=== PATIENT | female | born 1965 | race Caucasian/White ===

== ENCOUNTER → 2021-02-12 10:57 | Outpatient (CLI) | payer OTHER, SELFPAY ==
--- NOTE | ~2021-02-12 | XR_ITS ---
EXAMINATION: XR thoracic spine 2V DATE: 02/12/2021 11:17 INDICATION: Back pain TECHNIQUE: AP and lateral views of the thoracic spine are obtained. COMPARISON: None. FINDINGS: There are 13 degrees of thoracolumbar dextroscoliosis. Bone alignment is normal. The verteb ral body heights are maintained. There is mild loss of intervertebral disc space height in the midtho racic spine. No fracture is identified. IMPRESSION: 1. Mild thoracic spondylosis without acute findings. Reviewed, dictated and finalized at location B.
--- NOTE | ~2021-02-12 | XR_ITS ---
EXAMINATION: XR lumbar spine 2-3V DATE: 02/12/2021 11:17 INDICATION: Back pain TECHNIQUE: Anteroposterior and lateral views of the lumbar spine, and cone-down lateral view of the l umbosacral junction were obtained. COMPARISON: None. FINDINGS: There are 13 degrees of thoracolumbar levoscoliosis. The vertebral body heights are maintai va. There is 1 mm of anterolisthesis of L3 on L4. The intervertebral disc spaces are maintained. The re is mild facet osteoarthritis of the lower lumbar spine. The bowel gas pattern is normal. IMPRESSION: 1. Mild lumbar spondylosis without acute findings. Reviewed, dictated and finalized at location B.
--- NOTE | ~2021-02-12 | XR_ITS ---
EXAMINATION:XR_[id number]_CR DATE: 02/12/2021 11:17 INDICATION: Neck pain TECHNIQUE: AP, lateral, lateral swimmers and odontoid views of the cervical spine are provided. COMPARISON: None FINDINGS: There are 2 mm of anterolisthesis of C4 on C5. Bone alignment is otherwise normal. The odon toid is intact. No fracture is identified. The vertebral body heights are normal. There is moderate l oss of intervertebral disc space height at C5-6 and C6-7. Small degenerative osteophytes project from the anterior endplates of multiple vertebral bodies. There is moderate facet and uncovertebral joint osteoarthritis at C5-6 and C6-7. Prevertebral soft tissues are normal. IMPRESSION: 1. Moderate cervical spondylosis without acute findings. Reviewed, dictated and finalized at location B.
== END ==
PROVIDERS: Visit Provider Chiropractor
DX: M47.816 Spondylosis without myelopathy or radiculopathy, lumbar region (principal); M47.812 Spondylosis without myelopathy or radiculopathy, cervical region
CPT/HCPCS: 72040; 72070; 72100

== ENCOUNTER 2022-10-06 10:09 | Day surgery (SDC) | payer OTHER, SELFPAY ==
[2022-08-04 07:04] VITALS: BMI 19.4
--- NOTE | 2022-10-05 14:23 | PM.HPGS ---
History of Present Illness History of Present Illness Consent: Risks, benefits, and alternatives have been discussed and questions answered. Patient agrees to proceed with procedure. Chief complaint: Neoplasm Screening Narrative: Leah Mittal is a 56 year old female was referred for colon cancer screening. Review of Systems Review of Systems: All systems reviewed & are unremarkable except as noted in HPI and below PMFSH Social History Social History Smoking status: Never smoker Alcohol intake: current Substance use: never Substance use type: does not use Living arrangements: with family Spiritual care concerns: No Meds Home Medications and Allergies Home Medications Medication Instructions Recorded Confirmed Type No Home Medications 09/21/22 10/06/22 History Allergies Allergy/AdvReac Type Severity Reaction Status Date / Time No Known Allergies Allergy Mild Verified 10/06/22 10:42 Exam Resp: Auscultation: clear to auscultation bilaterally Cardio: Rate: regular rate Rhythm: regular rhythm GI: GI Palp: Yes Soft to palpation and No Tenderness to palpation present (GI) Assessment and Plan Assessment and plan (1) Colon cancer screening: Code(s): Z12.11 - Encounter for screening for malignant neoplasm of colon Status: Acute Assessment and Plan: Colonoscopy with possible biopsy or polypectomy or cautery or injection of substances.
--- NOTE | 2022-10-06 09:09 | P.PNAN_ITS ---
Anes - Initial Pre Proc Eval Procedure: Operation Date: 10/06/22 12:00 Proposed Procedures p Screening Colonoscopy - Carloz Narayanan MD Date/Time: 10/06/22 09:09 Surgeon: Carloz Narayanan MD Pre Op Diagnosis: Neoplasm Screening Patient Data Age: 56 Gender: F Height: 1.65 m Weight: 54.5 kg Allergies Allergy/AdvReac Type Severity Reaction Status Date / Time No Known Allergies Allergy Mild Verified 10/06/22 10:42 Home Medications Medication Instructions Recorded Confirmed Type No Home Medications 09/21/22 10/06/22 History Patient hx anesthesia problems: none Family hx anesthesia problems: none Results Review: All pre-operative results and documents have been reviewed as part of the pre- operative evaluation. [facility] Social History Social History Smoking status: Never smoker Alcohol intake: current Substance use: never Substance use type: does not use Living arrangements: with family Spiritual care concerns: No Anes - Eval Final PreProcedure Day of Procedure 10/06/22 09:09 Patient weight: normal Heart: regular rate and rhythm Lungs: clear to auscultation and normal air movement Airway: Mallampati scale class II Neurological: alert and oriented Last oral intake: >/= 8 hours ASA classification: I Emergent: no Anesthetic plan: proceed Anesthesia type and monitoring: general GIVS and standard monitoring Results Review: All pre-operative results and documents have been reviewed as part of the pre- operative evaluation. Informed Consent: The patient's anesthetic plan and its attendant risks and benefits were discussed with the patient/family/POA. Questions were solicited and answers provided to the satisfaction of the patient/family/POA.
[2022-10-06 10:45] VITALS: BP 125/82; PULSE 69; RESP 20; TEMP 36.7; O2SAT 100
[2022-10-06] MEDS: LACTATED RINGERS 1,000 ML 150 ML IV CONT (10:57)
[2022-10-06 12:00] VITALS: BP 101/56; PULSE 64; RESP 15; O2SAT 100
[2022-10-06 12:10] VITALS: BP 106/63; PULSE 68; RESP 15; O2SAT 100
[2022-10-06 12:33] VITALS: BP 119/72; PULSE 65; RESP 15; O2SAT 100
--- NOTE | 2022-10-06 12:59 | WPDANESPN ---
Anes - Prog Note Post-Op Date/Time: 10/06/22 12:59 Cardiovascular status: normal Respiratory status: normal Airway patency: baseline Mental status: baseline Post-Op hydration status: normal Vital Signs: Last Vital Signs Temp 36.7 C 10/06/22 10:45 Pulse 65 10/06/22 12:33 Resp 15 10/06/22 12:33 BP 119/72 10/06/22 12:33 Pulse Ox 100 10/06/22 12:33 O2 Del Method Room Air 10/06/22 12:33 Pain Score (VAS): 0 I/O: Intake & Output 10/05/22 10/06/22 10/06/22 23:59 07:59 15:59 Intake Total 300 Balance 300 Post-procedural complaints: none Patient Feedback: Patient satisfied with anesthetic care. Other Findings: Patient vital signs back to baseline. Patient denies nausea and vomiting. Patient's pain under control. Patient OK for discharge.
== END 2022-10-06 12:42 | disposition home or self-care (01) ==
PROVIDERS: PCP Internal Medicine; Visit Provider Internal Medicine Gastroenterology
PROC: 0DJD8ZZ Inspection of Lower Intestinal Tract, Via Natural or Artificial Opening Endoscopic (ICD-10-PCS; CPT 45378; principal; 2022-10-06 12:00)
DX: Z12.11 Encounter for screening for malignant neoplasm of colon (principal)
CPT/HCPCS: 45378